=== PATIENT | male | born 1930 | race Caucasian/White ===

== ENCOUNTER 2017-04-08 10:12 | Outpatient (CLI) | payer MEDICARE, BC, OTHER ==
[~2017-04-08 10:12] MED LIST: Iopamidol 370 76% 100 ML VIAL ONE
[2017-04-08 11:42] LABS: Bilirubin Negative (Negative); Blood, Urine Negative (Negative); Glucose, Urine (Dipstick) Negative (Negative); Ketone, Urine Negative (Negative); Nitrite Negative (Negative); Protein, Urine (Dipstick) Negative (Neg-Trace); Urobilinogen 0.2 mg/dL (0.2-1.0)
[2017-04-08 11:47] LABS: Bacteria/HPF None Seen HPF (None Seen); Hyaline Casts/LPF 0-3 HYALINE CAST LPF (0-3 Hyaline); RBC/HPF None Seen HPF (0-3); Squamous Epithelial 0-3 HPF (0-3); WBC/HPF None Seen HPF (0-3)
[2017-04-08 11:58] LABS: ALT (SGPT) 15 U/L (8-55); AST (SGOT) 18 U/L (5-34); Alkaline Phosphatase 116 U/L (40-150); Anion Gap 10 mmol/L (10-20); BUN (Urea Nitrogen) 22 mg/dL (8.4-25.7); Bilirubin, Direct 0.2 mg/dL (0.1-0.3); Bilirubin, Total 0.7 mg/dL (0.2-1.2); Calc. Creatinine Clearance 0 mL/min (70-130); Calcium 9.6 mg/dL (7.8-10.44); Carbon Dioxide 28 mmol/L (23-31); Chloride 105 mmol/L (98-107); Estimated GFR-MDRD 55; Protein, Total 7.4 g/dL (5.8-8.1)
--- NOTE | 2017-04-08 16:13 | CT ---
CT ABDOMEN WITH AND WITHOUT IV CONTRAST CT PELVIC WITH AND WITHOUT IV CONTRAST 04/08/17 HISTORY: Prostate cancer. Patient underwent radiation therapy. History of kidney stones. COMPARISON: None available. FINDINGS: There is partial visualization of cardiac pacemaking leads. There is prominent calcification of judi l valve annulus and vascular calcifications seen in the abdominal aorta and iliac arteries. There is a small 6 mm pleural based pulmonary nodules seen at the lateral right lung base. No additional pulmo nary nodule is seen at either lung base. Degenerative changes are seen in the spine. There is left co nvexed scoliosis of the thoracolumbar spine. No lytic or sclerotic osseous lesions are seen. There are bilateral renal cysts with 2.1 cm cyst in the superior pole right kidney and exophytic 2 cm cyst lateral aspect mid portion left kidney. Subcentimeter too small to characterize hypodense lesio ns are also seen within the right kidney. No enhancing renal mass is visualized. No renal or ureteral calculus is seen. The urinary bladder is incompletely distended but otherwise normal in appearance. The liver, spleen, pancreas, and bilateral adrenal glands demonstrate a normal CT appearance. There is colonic diverticulosis. No lymphadenopathy, free fluid, or fluid collection is seen in the a bdomen or pelvis. IMPRESSION: 1. Pleural based pulmonary nodule right lower lobe measuring 6 mm. Followup evaluation in six mo nths is recommended. 2. Bilateral renal cysts with too small to characterize hypodense lesions in the right kidney. T here is no enhancing renal mass identified, and no renal or ureteral calculi are seen. 3. Mild cardiomegaly with minimal pericardial effusion. 4. Colonic diverticulosis. 5. Degenerative changes in the spine, but no lytic or sclerotic osseous lesions are seen to sugg est osseous metastatic disease. POS: [facility]
== END 2017-04-08 10:13 | disposition home or self-care (01) ==
LOC: CT 10:12
PROVIDERS: ATTEND Urology
DX: C61 Malignant neoplasm of prostate (principal); N28.1 Cyst of kidney, acquired; N32.0 Bladder-neck obstruction; N35.9 Urethral stricture, unspecified; I51.7 Cardiomegaly; I31.3 Pericardial effusion (noninflammatory); K57.30 Diverticulosis of large intestine without perforation or abscess without bleeding; M47.899 Other spondylosis, site unspecified; M89.9 Disorder of bone, unspecified; R91.1 Solitary pulmonary nodule; R39.198 Other difficulties with micturition; Z87.442 Personal history of urinary calculi
CPT/HCPCS: 36415; 74178; 80048; 80076; 81001; 84153; 87086

== ENCOUNTER 2017-04-22 06:49 | Outpatient (CLI) | payer MEDICARE, BC, OTHER ==
[2017-04-22] MEDS ORDERED: Iopamidol 370 76% 100 ML VIAL ONE (13:13)
--- NOTE | 2017-04-22 14:40 | CT ---
CT CHEST WITH CONTRAST: Technique: Multiple axial tomograms were obtained through the chest with IV enhancement. History: Lung nodule. Comparison: Abdomen and pelvic CT, 04-08-17. That exam described a small nodule in the peripheral rig ht lower lobe abutting the pleural surface. FINDINGS: On today's exam the small right lower lobe nodule peripherally is again seen. This measures approxima tely 7 mm in the coronal projection. It is located along the fissure. This does not abutt the pleural surface on today's exam. A tiny calcified nodule is seen in the superior segment of the right lower lobe right midlung field m easuring approximately 3 mm. No other pulmonary mass or nodule is seen. The mediastinum is unremarkable. No adenopathy. Atheroscle rotic changes in the thoracic aorta. Images through the upper abdomen appear unremarkable. IMPRESSION: 7 mm nodule peripheral right lower lobe in the right lung base along the fissure measuring 7 mm. Pedrito mmend noncontrast chest CT in 6-12 months to assess stability. POS: [facility]
== END 2017-04-22 06:50 | disposition home or self-care (01) ==
LOC: BICCT 06:49 → CT 06:50
PROVIDERS: ATTEND Internal Medicine Critical Care Medicine
DX: R91.1 Solitary pulmonary nodule (principal)
CPT/HCPCS: 71260

== ENCOUNTER 2017-04-24 11:06 | Outpatient (CLI) | payer MEDICARE, BC, OTHER ==
[2017-04-24 13:44] LABS: Hematocrit 38.1 % (42.0-52.0); Red Blood Cell (RBC) Count 4.07 mill/uL (4.70-6.10); White Blood Cell (WBC) Count 10.9 thou/uL (4.8-10.8)
[2017-04-24 13:48] LABS: PTT 31.7 SEC (22.9-36.1); Prothrombin Time 13.8 SEC (12.0-14.7)
[2017-04-24 14:00] LABS: Anion Gap 11 mmol/L (10-20); BUN (Urea Nitrogen) 26 mg/dL (8.4-25.7); Calc. Creatinine Clearance 0 mL/min (70-130); Calcium 9.4 mg/dL (7.8-10.44); Carbon Dioxide 25 mmol/L (23-31); Chloride 108 mmol/L (98-107); Estimated GFR-MDRD 51
[2017-04-24 14:21] LABS: Bacteria/HPF None Seen HPF (None Seen); Bilirubin Negative (Negative); Blood, Urine Large (Negative); Glucose, Urine (Dipstick) Negative (Negative); Hyaline Casts/LPF 0-3 HYALINE CAST LPF (0-3 Hyaline); Ketone, Urine Trace mg/dL (Negative); Nitrite Negative (Negative); Protein, Urine (Dipstick) 100 mg/dL (Neg-Trace); RBC/HPF GREATER THAN 50-TNTC HPF (0-3); Squamous Epithelial 0-3 HPF (0-3); Urobilinogen 0.2 mg/dL (0.2-1.0)
[2017-04-24 14:35] LABS: Renal Epithelial 0-3 HPF (0-3); Transitional Epithelial 0-3 HPF (0-3)
--- NOTE | 2017-05-10 13:27 | EKG ---
Test Reason : Blood Pressure : / mmHG Vent. Rate : 067 BPM Atrial Rate : 067 BPM P-R Int : 170 ms QRS Dur : 172 ms QT Int : 506 ms P-R-T Axes : 005 -80 072 degrees QTc Int : 534 ms AV sequential or dual chamber electronic pacemaker When compared with ECG of 29-JAN-2014 04:20, No significant change was found Confirmed by GISSELL WALLACE MD ([id number]) on 05/10/2017 1:26:41 PM Referred By: DELANO Confirmed By:GISSELL WALLACE MD
== END 2017-04-24 11:07 | disposition home or self-care (01) ==
LOC: LABBT 11:06
PROVIDERS: ATTEND Urology
DX: Z01.812 Encounter for preprocedural laboratory examination (principal); N32.0 Bladder-neck obstruction
CPT/HCPCS: 80048; 81001; 85027; 85610; 85730; 86850; 86900; 86901; 87086; 93005; 93010

== ENCOUNTER 2017-04-25 11:13 | Day surgery (SDC) | payer MEDICARE, BC, OTHER ==
[2017-04-24 11:31] VITALS: BMI 25.1
[2017-04-25] MEDS ORDERED: Levofloxacin 500 mg/D5W 100 ml Premix Bag ONE (13:53)
[2017-04-25] MEDS ORDERED: cefTRIAXone\\ROCEPHIN 1 GM, Syringe 0.4 ML in Sterile Water 9.6 ML SLOW IVP SCH (14:15)
[2017-04-25] MEDS ORDERED: Fentanyl 100 MCG/2 ML VIAL ONE (15:03)
[2017-04-25] MEDS ORDERED: Phenylephrine 10 MG/NS 250 ML 0 ML ONE (15:03)
[2017-04-25] MEDS ORDERED: Promethazine HCl 25 MG/ML VIAL ONE (15:03)
[2017-04-25] MEDS ORDERED: Iothalamate Meglumine 60% 50 ML VIAL FS ONE (15:10)
[2017-04-25] MEDS ORDERED: Phenylephrine 10 MG/NS 250 ML 250 ML ONE (15:21)
[2017-04-25] MEDS ORDERED: Ondansetron HCl/PF 4 MG/2 ML Vial ONE (15:36)
[2017-04-25] MEDS ORDERED: Lidocaine 1% PF 5 ML VIAL ONE (15:36)
[2017-04-25] MEDS ORDERED: Propofol 200 MG/20 ML VIAL ONE (15:36)
[2017-04-25] MEDS ORDERED: Phenazopyridine HCl 97.5 MG TABLET ONE (16:45)
[2017-04-25] MEDS ORDERED: Oxybutynin 5 MG TAB ONE (16:53)
--- NOTE | 2017-04-25 16:56 | OP ---
PRIMARY CARE PHYSICIAN: Tarun Fortune M.D. PREOPERATIVE DIAGNOSES: 1. An 87-year-old male with history of prostate cancer, status post external beam radiation therapy 2001. 2. History of benign prostatic hypertrophy status post transurethral resection of the prostate by Dr. Reed in 1979. 3. History of bladder neck contracture status post transurethral resection of the bladder neck contracture [place] [address] Reed. 4. History of impassable membranous urethral stricture, Dr. Sevilla treated on 2013 with dilation. POSTOPERATIVE DIAGNOSES: 1. An 87-year-old male with history of prostate cancer, status post external beam radiation therapy 2001. 2. History of benign prostatic hypertrophy status post transurethral resection of the prostate by Dr. Reed in 1979. 3. History of bladder neck contracture status post transurethral resection of the bladder neck contracture in [address] Reed. 4. History of impassable membranous urethral stricture, Dr. Sevilla treated on 2013 with dilation. PROCEDURES: Cystoscopy, transurethral resection of bladder neck contracture, 22 Malian 10 mL Councill-tip Jose catheter placement over guidewire. SURGEON: Niya Newman D.O. ANESTHESIA: LMA. COMPLICATIONS: None apparent. DISPOSITION: Recovery room in stable condition. INTRAOPERATIVE FINDINGS: 1. Diffuse urethral fibrosis. 2. Resolution of bulbar urethral stricture recently dilated at my office. 3. Tight bladder neck contracture with fibrosis. 4. Diffuse telangiectases of the bladder mucosa consistent with radiation cystitis changes. 5. No bladder lesion. 6. Bilateral clear efflux of urine. 7. Diffuse cellulae trabeculation consistent with chronic outlet obstruction 8. False passage at the level of the membranous urethra INDICATIONS FOR THE PROCEDURE AND HISTORY: Mr. Cardenas is a pleasant 87-year-old male with history of prostate cancer, BPH, bladder neck contracture, urethral stricture previously followed by Dr. Sevilla. He recently transitioned his care to me. He was previously followed by Dr. Reed and had undergone transurethral resection of prostate, subsequent transurethral resection of bladder neck contracture in 1996. He subsequently was diagnosed with [place] score 3+4 prostate cancer and underwent radiation therapy in 2001. He was then followed by the [facility], found to have very tight impassable membranous urethral stricture, which was treated in 2013. He presented to my office with no significant urinary retention, PVR 0, however, had significant irritative and obstructive urinary symptoms of decreased caliber urinary frequency, hesitancy. He underwent local cystoscopy, which demonstrated bulbar urethral stricture which I was able to pass proximally, he had a tight bladder neck contracture 12-14 Malian caliber, due to the significant fibrosis of the bladder neck, I was unable to pass a catheter over the guidewire, nor dilated his bladder neck. Given that there was an acute angle of the bladder neck, the only catheter I was able to pass was a coude catheter. Subsequently, the urine has been clear. He presents today for transurethral resection of bladder neck contracture as it is unable to be dilated. Risks and complications and indications for the procedure was reviewed with him in detail including, but not limited to, bleeding, pain, infection, injury to adjacent organs, urosepsis. Ureteral bladder injury discussed with patient in detail and he desired to proceed. DESCRIPTION OF THE PROCEDURE: After an informed consent is signed, the patient is taken to the operating room, placed in a dorsal lithotomy position with the genital area prepped and draped in the usual surgical sterile fashion. The previously placed urethral Jose catheter was removed and I was able to pass a 21-Malian cystoscope without any issues. There was evidence of a false passage at the bulbar membranous urethra junction; however, no evidence of stricture. The bladder neck again demonstrated caliber, approximately 14-16 Malian caliber as it was minimally dilated under local, again there is a tight angle of the bladder neck; however, I was able to negotiate the rigid cystoscope into the bladder. There were diffuse changes consistent with radiation cystitis, prominent vasculature with no active bleeding appreciated. Diffuse cellulae trabecular formation was noted consistent with chronic outlet obstruction. At this time, a 26-Malian resectoscope gyrus bipolar was placed, visual obturator was utilized to pass the scope under direct visualization. Transurethral resection of bladder neck contracture was performed in which I was able to pass the scope back and forth without any issues. A 0.35 Super Stiff wire was then placed at the level of the bladder and a 22 Malian Councill-tip was able to be passed without any resistance. Clear urine output was noted. Due to the very dense nature of his bladder neck contracture, and false passage at the bulbar membranous urethra, I will leave the indwelling Jose catheter for 2 weeks. He is advised to continue to hold his Pradaxa, as I do have concerns regarding his radiation cystitis, with recent instrumentation. It would be prudent to hold his anticoagulation until follow up when Jose catheter can be safely removed. He is discharged with [place] 5/325, #40 1-2 p.o. q.8 hours p.r.n., ciprofloxacin for 2 weeks, Myrbetriq 50 mg 1 p.o. daily #14, AZO p.r.n., Colace p.r.n. Appointment provided for 05/09/2017 at 8:15 a.m. for a voiding trial. [facility]
== END 2017-04-25 18:48 | disposition home or self-care (01) ==
LOC: SDC 11:13
PROVIDERS: ATTEND Urology
PROC: 0TTC8ZZ Resection of Bladder Neck, Via Natural or Artificial Opening Endoscopic (ICD-10-PCS; principal; 2017-04-25)
DX: N32.0 Bladder-neck obstruction (principal); N32.89 Other specified disorders of bladder; H91.93 Unspecified hearing loss, bilateral; E78.00 Pure hypercholesterolemia, unspecified; Z90.89 Acquired absence of other organs; Z90.79 Acquired absence of other genital organ(s); Z90.49 Acquired absence of other specified parts of digestive tract; Z95.0 Presence of cardiac pacemaker; Z98.890 Other specified postprocedural states; Z87.442 Personal history of urinary calculi; Z85.46 Personal history of malignant neoplasm of prostate
CPT/HCPCS: 52640; 88307; C1758; C1769; A4216; J0696; J1956; J2001; J2405; J2550; J2704; J3010; Q9961

== ENCOUNTER 2017-09-13 09:42 | Inpatient (IN) | payer MEDICARE, BC, OTHER ==
[2017-09-13 10:44] LABS: #Monocytes 1.4 thou/uL (0.11-0.59); #Neutrophils 14.9 thou/uL (1.40-6.50); %Eosinophils 0.1 % (0.0-10.0); %Lymphocytes 5.6 % (21.0-51.0); %Monocytes 7.9 % (0.0-10.0); %Neutrophils 86.4 % (42.0-75.0); Hemoglobin 13.5 g/dL (14.0-18.0); Mean Corpuscular HGB CONC 34.2 g/dL (32.0-36.0); Mean Corpuscular Hemoglobin 29.5 pg (27.0-31.0); Mean Corpuscular Volume 86.2 fl (80.0-94.0); Platelet Count 158 thou/uL (130-400); RBC Distribution Width 13.5 % (11.5-14.5); Red Blood Cell (RBC) Count 4.57 mill/uL (4.70-6.10); White Blood Cell (WBC) Count 17.2 thou/uL (4.8-10.8)
[2017-09-13 11:11] LABS: ALT (SGPT) 15 U/L (8-55); AST (SGOT) 20 U/L (5-34); Albumin 4.5 g/dL (3.4-4.8); Alkaline Phosphatase 130 U/L (40-150); Anion Gap 17 mmol/L (10-20); BUN (Urea Nitrogen) 28 mg/dL (8.4-25.7); Bilirubin, Total 1.2 mg/dL (0.2-1.2); CK (CPK) 90 U/L (30-200); Calc. Creatinine Clearance 0 mL/min (70-130); Calcium 9.7 mg/dL (7.8-10.44); Carbon Dioxide 23 mmol/L (23-31); Chloride 101 mmol/L (98-107); Estimated GFR-MDRD 40; Glucose 123 mg/dL (83-110); Lipase 14 U/L (8-78); Potassium 3.8 mmol/L (3.5-5.1); Protein, Total 7.5 g/dL (5.8-8.1); Sodium 137 mmol/L (136-145)
--- NOTE | 2017-09-13 11:16 | RAD ---
CHEST 1 VIEW: Date: 09/13/17 HISTORY: Fall. Weakness. COMPARISON: 03/02/08. FINDINGS: Cardiac silhouette is magnified and upper limits of normal. Shallow inspiration accentuates pulmonary markings. Mediastinum midline with aortic calcifications and a dual lead left subclavian cardiac cesar ctronic device. No lobar consolidation or evidence of pneumothorax. IMPRESSION: Chronic-type findings. No active cardiopulmonary abnormalities are demonstrated. POS: [facility]
[2017-09-13 11:17] LABS: CKMB 1.6 ng/mL (0-6.6); Troponin I 0.066 ng/mL (< 0.028)
--- NOTE | 2017-09-13 12:05 | PDOC.FPRHP ---
- History of Present Illness Chief Complaint: Weakness, Cough History of Present Illness: 87 y/o M with PMHx of HTN, HLD, CAD presents with cough and weakness. The patient reports an ongoing productive cough for 3 days. He denies any chest pain , SOB, fevers, chills. He denies any sick contacts. He acutely became weak the day before yesterday and has had three falls since then. Yesterday he fell twice and then today once. He has had no injuries, but just feels generally weak. He denies any focal weakness or symptoms. He has gotten a pneumonia shot before, but says it was a long time ago. He walks with a walker. He lives in an assisted living facility with his . ED Course: The patient was evaluated in the ED by Dr. Snider and Shantel Soria and was given Levaquin 750mg, NS @ 125, and a duoneb. - Allergies/Adverse Reactions Allergies Allergy/AdvReac Type Severity Reaction Status Date / Time No Known Allergies Allergy Verified 04/24/17 11:31 - Home Medications Medication Instructions Recorded Confirmed Type Dabigatran [Pradaxa] 1 cap PO BID 10/10/12 09/13/17 History Dexlansoprazole [Dexilant] 1 cap PO DAILY 10/10/12 09/13/17 History Dorzolamide HCl/Timolol Maleat 1 drop EA EYE BID 10/10/12 09/13/17 History [Cosopt Ophth Solution] Areds Eye Vitamin 2 cap PO DAILY 04/24/17 09/13/17 History Colestipol HCl 2 tab PO DAILY 04/24/17 09/13/17 History DULoxetine HCl 1 cap PO DAILY 04/24/17 09/13/17 History Donepezil HCl [Aricept] 1 tab PO HS 04/24/17 09/13/17 History Ergocalciferol (Vitamin D2) 1 tab PO DAILY 04/24/17 09/13/17 History [Vitamin D2] Latanoprost [Xalatan 0.005% Ophth 1 drop EA EYE QPM 04/24/17 09/13/17 History Soln] Metoprolol Succinate 1 tab PO HS 04/24/17 09/13/17 History Multivitamin [Multi-Vitamin Daily] 1 tab PO DAILY 04/24/17 09/13/17 History Potassium Chloride [K-Dur] 2 tab PO DAILY 04/24/17 09/13/17 History amLODIPine/Atorvastatin [Caduet] 1 tab PO DAILY 04/24/17 09/13/17 History Ciprofloxacin HCl [Cipro] 500 mg PO BID 04/25/17 04/25/17 History Fexofenadine HCl [Mckenzie Allergy] 180 mg PO DAILY 09/13/17 09/13/17 History Gabapentin [Neurontin] 300 mg PO HS 09/13/17 09/13/17 History - History PMHx: 1. Bradycardia s/p pacemaker 2. a-fib 3. CAD 4. HLD 5. HTN 6. Prostate cancer 7. Osteoarthritis PSHx: 1. TURP 2. Cholecystectomy 3. Pacemaker 4. Tonsillectomy FHx: Denies Social: Former cigar and cigarette smoker, but quit in the . Drinks a beer occasionally, denies drug use. Lives in an assisted living facility with his . PCP: Devika - Review of Systems General: reports: fatigue. denies: fever/chills Eyes: reports: eye pain ENT: reports: nasal congestion, rhinorrhea Respiratory: reports: cough. denies: shortness of breath Cardiovascular: denies: chest pain, edema Gastrointestinal: denies: nausea, vomiting, diarrhea, abdominal pain Genitourinary: denies: incontinence, dysuria Skin: denies: rashes, lesions Musculoskeletal: denies: pain, tenderness, stiffness Neurological: reports: weakness. denies: numbness, syncope, seizure Psychological: denies: anxiety, depression - Vital signs BP: 136/64 HR: 75 RR: 18 Tmax: 98.2 Pox: 94% on RA Wt: 90.72kg - Physical Exam Constitutional: NAD, awake, alert and oriented, well developed HEENT: normocephalic and atraumatic, EOMI, MMM, oropharynx clear Neck: supple, no LAD Heart: RRR, normal S1/S2 -Lungs: Tachypneic, no use of accessory muscles of respiration, Crackles in left lung base, diffuse rhonchi. Abdomen: soft, non-tender, bowel sounds present, no masses/distention Musculoskeletal: normal structure, normal tone, ROM grossly normal Neurological: no focal deficit, CN II-XII intact Skin: no rash/lesions, good turgor, capillary refill <2 seconds Psychiatric: normal mood and affect, good judgment and insight, intact recent and remote memory FMR H&P: Results - Labs Result Diagrams: 09/13/17 10:27 09/13/17 10:27 Lab results: WBC 17.2 thou/uL (4.8-10.8) H 09/13/17 10:27 Hgb 13.5 g/dL (14.0-18.0) L 09/13/17 10:27 Hct 39.4 % (42.0-52.0) L 09/13/17 10:27 MCV 86.2 fl (80.0-94.0) 09/13/17 10:27 Plt Count 158 thou/uL (130-400) 09/13/17 10:27 Neutrophils % 86.4 % (42.0-75.0) H 09/13/17 10:27 Sodium 137 mmol/L (136-145) 09/13/17 10:27 Potassium 3.8 mmol/L (3.5-5.1) 09/13/17 10:27 Chloride 101 mmol/L (98-107) 09/13/17 10:27 Carbon Dioxide 23 mmol/L (23-31) 09/13/17 10:27 BUN 28 mg/dL (8.4-25.7) H 09/13/17 10:27 Creatinine 1.64 mg/dL (0.6-1.3) H 09/13/17 10:27 Glucose 123 mg/dL (83-110) H 09/13/17 10:27 Lactic Acid 1.7 mmol/L (0.5-2.2) 09/13/17 10:27 Calcium 9.7 mg/dL (7.8-10.44) 09/13/17 10:27 Total Bilirubin 1.2 mg/dL (0.2-1.2) 09/13/17 10:27 AST 20 U/L (5-34) 09/13/17 10:27 ALT 15 U/L (8-55) 09/13/17 10:27 Alkaline Phosphatase 130 U/L (40-150) 09/13/17 10:27 Creatine Kinase 90 U/L (30-200) 09/13/17 10:27 CK-MB (CK-2) 1.6 ng/mL (0-6.6) 09/13/17 10:27 Serum Total Protein 7.5 g/dL (5.8-8.1) 09/13/17 10:27 Albumin 4.5 g/dL (3.4-4.8) 09/13/17 10:27 Lipase 14 U/L (8-78) 09/13/17 10:27 - Radiology Interpretation Chest x-ray Status: image reviewed by me, report reviewed by me Additional comment: No evidence of acute process FMR H&P: A/P - Problem List (1) Sepsis Current Visit: Yes Status: Acute Code(s): A41.9 - SEPSIS, UNSPECIFIED ORGANISM Qualifiers: Sepsis type: sepsis due to unspecified organism Qualified Code(s): A41.9 - Sepsis, unspecified organism (2) CAP (community acquired pneumonia) Current Visit: Yes Status: Acute Code(s): J18.9 - PNEUMONIA, UNSPECIFIED ORGANISM Qualifiers: Lung location: unspecified part of lung (3) CELESTINO (acute kidney injury) Current Visit: Yes Status: Acute Code(s): N17.9 - ACUTE KIDNEY FAILURE, UNSPECIFIED (4) Dehydration Current Visit: No Status: Acute Code(s): E86.0 - DEHYDRATION (5) Weakness generalized Current Visit: Yes Status: Acute Code(s): R53.1 - WEAKNESS (6) A-fib Current Visit: Yes Status: Acute Code(s): I48.91 - UNSPECIFIED ATRIAL FIBRILLATION Qualifiers: Atrial fibrillation type: unspecified Qualified Code(s): I48.91 - Unspecified atrial fibrillation (7) Adenocarcinoma of prostate Current Visit: No Status: Acute Code(s): C61 - MALIGNANT NEOPLASM OF PROSTATE (8) Coronary artery disease Current Visit: No Status: Acute Code(s): I25.10 - ATHSCL HEART DISEASE OF [place] CORONARY ARTERY W/O ANG PCTRS Qualifiers: Coronary Disease-Associated Artery/Lesion type: [place] artery [place] vs. transplanted heart: [place] heart Associated angina: angina presence unspecified Qualified Code(s): I25.10 - Atherosclerotic heart disease of [place] coronary artery without angina pectoris (9) Hyperlipidemia Current Visit: No Status: Acute Code(s): E78.5 - HYPERLIPIDEMIA, UNSPECIFIED Qualifiers: Hyperlipidemia type: unspecified Qualified Code(s): E78.5 - Hyperlipidemia , unspecified (10) Hypertension Current Visit: No Status: Acute Code(s): I10 - ESSENTIAL (PRIMARY) HYPERTENSION Qualifiers: Hypertension type: essential hypertension Qualified Code(s): I10 - Essential (primary) hypertension (11) Bradycardia Current Visit: Yes Status: Acute Code(s): R00.1 - BRADYCARDIA, UNSPECIFIED (12) Pacemaker Current Visit: Yes Status: Acute Code(s): Z95.0 - PRESENCE OF CARDIAC PACEMAKER - Plan Sepsis 2/2 Community Acquired Pneumonia Patient had tachypnea and leukocytosis. He had significant rhonchi on exam. There was no evidence of infiltrate on the CXR, but will repeat in the AM after adequate hydration as the patient appears clinically to have PNA. He was given a dose of levaquin in the ED. CRP elevated to 19.62 -Rocephin day 1 -Azithromycin will start on 5/6 -Prednisone as the patient had elevated CRP -Repeat CXR after adequate hydration -Bolus with NS followed by NS @ 130 -Procalcitonin -Urine strep pneumo and legionella CELESTINO on CKD 2 Patient has elevated Cr from baseline. Likely prerenal -Will give NS -Monitor Generalized Weakness This could be 2/2 CAP as patient is elderly. -Will treat infection and monitor -PT/OT -CM consult for potential placement Prostate Adenocarcinoma s/p TURP -Continue home meds CAD Troponin was initially indeterminate, but downtrended -Continue pradaxa HTN -Continue metoprolol and amlodipine a-fib -Continue metoprolol VTE ppx: continue home Pradaxa Code Status: DNR/DNI Disposition/LOS: Admit to medical, length of stay likely greater than 2 days FMR H&P: [place] - Pertinent history 87 year old white male who presented to the ED complaining of generalized weakness and 3 falls over the last 2 days. He also reports cough and nausea for 3-4 days. He denies fever, chills, headache, sore throat, chest pain, dyspnea, orthopnea, PND, peripheral edema, unilateral weakness, and slurred speech. Falls were not associated with head injury and he denies musculoskeletal pain and loss of consciousness. 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 Denies tobacco, drug, and alcohol use. ED Seen by BRYOLOGIST Yang. Given Levaquin, Duoneb, and IV fluids - Pertinent findings Vital Signs Tmax 98.2 RR 36 HR 67 BP 128/71 O2 sat: 97% on room air Weight 90.7 kg EKG: Paced ventricular rhythm CXR: No acute abnormalities on 1 view portable chest x-ray Physical Exam: General: Awake, alert, oriented x4. NAD. Nontoxic appearing Eyes: EOMI, PERRL, nonicteric ENT: MMM, oropharynx clear CV: RRR. No murmurs, rubs, or gallops auscultated. Pulses full and equal in all 4 extremities Respiratory: Tachypneic at time of my exam. Has bibasilar rales and diffuse rhonchi Abdomen: Nontender, nondistended, no guarding or rebound Extremities: No edema. Equal movements bilaterally Neuro: CN II-XII intact. No focal deficits Psych: Mood and affect appropriate. Judgment and insight intact. - Plan Date/Time: 09/13/17 1205 ITereso DO, have evaluated this patient and agree with findings/plan as outlined by corporate strategy intern resident. Pertinent changes/additions are listed here. 87 year old white male presents with: 1) Sepsis 2/2 community acquired pneumonia Admit to inpatient. Septic on basis of leukocytosis and tachypnea at the time of my exam. Will treat with iv antibiotics and fluids. Lactate only 1.7. Check CRP, urine antigens for Streptococcus and Legionella. Blood cultures pending. Will get UA and urine culture. Consider daily steroids. BNP indeterminate and no symptoms of CHF so do not suspect that as the cause at this time. 2) Indeterminate troponin Patient has known history of CAD. No ischemic changes and CK-MB normal. Trend cardiac enzymes and EKG. Likely 2/2 #1 3) CELESTINO ok CKD stage 2 - Urine studies. Gentle iv fluids 4) HTN - Home meds 5) HLD - Home meds 6) CAD - Home meds 7) History of atrial fibrillation - Rate controlled. Home meds. Continue Pradaxa 8) BPH - Home meds 9) Code status - DNR/DNI
[2017-09-13 13:45] LABS: CKMB 1.7 ng/mL (0-6.6)
[2017-09-13] MEDS ORDERED: Sodium Chloride 0.9% 1,000 ML IV SCH (14:30)
[2017-09-13] MEDS ORDERED: Ondansetron HCl/PF 4 MG/2 ML Vial IVP PRN (14:31)
[2017-09-13] MEDS ORDERED: Ondansetron ODT 4 MG TAB PO PRN (14:31)
[2017-09-13] MEDS ORDERED: cefTRIAXone\\ROCEPHIN 1 GM in Sodium Chloride 0.9% 100 ML IVPB SCH (14:31)
[2017-09-13 15:09] VITALS: BMI 26.0
--- NOTE | 2017-09-13 15:20 | RAD ---
2 VIEW CHEST: Date: 09/13/17 HISTORY: Pneumonia. COMPARISON: Portable film earlier this morning. FINDINGS: The current exam is poorly positioned with rotation to the frontal projection. The lungs appear well aerated and clear with no evidence of infiltrate identified. Heart is mildly enlarged with prominent aortic calcification. No evidence of vascular congestion or edema. No effusion. Pacemaker leads are n oted. IMPRESSION: No evidence of infiltrate. POS: [facility]
[2017-09-13] MEDS ORDERED: Sodium Chloride 0.9% 500 ML IV SCH (16:00)
[2017-09-13] MEDS: Sodium Chloride 0.9% 1,000 ML IV SCH ×3 (16:12→22:51)
[2017-09-13] MEDS: predniSONE 50 MG TAB PO SCH (16:13)
[2017-09-13] MEDS: cefTRIAXone\\ROCEPHIN 1 GM, Syringe 0.4 ML in Sterile Water 9.6 ML SLOW IVP SCH (17:00)
[2017-09-13 17:33] LABS: Bilirubin Negative (Negative); Blood, Urine Negative (Negative); Clarity CLOUDY (Clear); Glucose, Urine (Dipstick) Negative (Negative); Leukocyte Small (Negative); Nitrite Negative (Negative); Protein, Urine (Dipstick) 30 mg/dL (Neg-Trace); Specific Gravity, Urine 1.026 (1.002-1.036); Urobilinogen 0.2 mg/dL (0.2-1.0)
[2017-09-13 17:35] LABS: Bacteria/HPF None Seen HPF (None Seen); RBC/HPF 0-3 HPF (0-3); Squamous Epithelial 0-3 HPF (0-3); WBC/HPF 21-50 HPF (0-3)
[2017-09-13 17:36] LABS: Yeast-AUWi Flag 53.9 (0-25.0)
[2017-09-13 17:37] LABS: Pathc Cast-AUWi Flag 2.61 (0-2.49)
[2017-09-13 17:47] LABS: Hyaline Casts/LPF 4-6 HYALINE CAST LPF (0-3 Hyaline); Other Casts/LPF None Seen LPF (0-3 Hyaline)
[2017-09-13 17:48] LABS: Legionella Urinary Ag Negative (Negative); Renal Epithelial None Seen HPF (0-3); Strep pneumo Urine Ag NEGATIVE (NEGATIVE); Transitional Epithelial NONE SEEN HPF (0-3); Yeast-All Forms None Seen HPF (None Seen)
[2017-09-13 17:51] LABS: CKMB 2.6 ng/mL (0-6.6); Troponin I 0.046 ng/mL (< 0.028)
[2017-09-13 17:58] LABS: Sodium, Urine Less than 20 mmol/L (Not Available)
[2017-09-13 18:23] LABS: Urea Nitrogen, Random Urine Greater than 1200 mg/dl
[2017-09-13] MEDS: Gabapentin 300 MG CAP PO SCH (20:40)
[2017-09-13] MEDS: Atorvastatin Calcium 10 MG TAB PO SCH (20:40)
[2017-09-13] MEDS: Dabigatran 150 mg Capsule PO SCH (20:41)
[2017-09-13] MEDS: Donepezil HCl 10 MG TAB PO SCH (20:41)
[2017-09-13] MEDS ORDERED: Melatonin 3 MG TAB PO PRN (22:35)
[2017-09-13] MEDS ORDERED: Acetaminophen 325 MG TAB PO PRN (22:35)
[2017-09-14 05:09] LABS: #Lymphocytes 0.7 thou/uL (1.20-3.40); #Monocytes 0.7 thou/uL (0.11-0.59); #Neutrophils 8.7 thou/uL (1.40-6.50); %Basophils 0.1 % (0.0-1.0); %Eosinophils 0.1 % (0.0-10.0); %Lymphocytes 7.3 % (21.0-51.0); %Monocytes 6.4 % (0.0-10.0); %Neutrophils 86.1 % (42.0-75.0); Hemoglobin 11.7 g/dL (14.0-18.0); Mean Corpuscular HGB CONC 35.3 g/dL (32.0-36.0); Mean Corpuscular Hemoglobin 30.7 pg (27.0-31.0); Mean Corpuscular Volume 87.1 fl (80.0-94.0); Mean Platelet Volume 8.3 fL (7.4-10.4); Platelet Count 141 thou/uL (130-400); RBC Distribution Width 13.2 % (11.5-14.5); Red Blood Cell (RBC) Count 3.82 mill/uL (4.70-6.10); White Blood Cell (WBC) Count 10.1 thou/uL (4.8-10.8)
[2017-09-14 05:21] LABS: Anion Gap 10 mmol/L (10-20); BUN (Urea Nitrogen) 27 mg/dL (8.4-25.7); Calc. Creatinine Clearance 48 mL/min (70-130); Calcium 8.4 mg/dL (7.8-10.44); Carbon Dioxide 20 mmol/L (23-31); Chloride 110 mmol/L (98-107); Estimated GFR-MDRD 58; Glucose 134 mg/dL (83-110); Potassium 3.7 mmol/L (3.5-5.1); Sodium 136 mmol/L (136-145)
--- NOTE | 2017-09-14 06:32 | PDOC.FM ---
- Subjective Subjective: Axel Cardenas seen at bedside this morning. He is doing well. He states that he is feeling better this morning, feeling much stronger. He says he has more of an appetite. Says that he is coughing less as well. No questions or concerns. Denies fever, chills, chest pain, dyspnea, n/v. - Objective MAR Reviewed: Yes Vital Signs & Weight: Vital Signs (12 hours) Temp Pulse Resp BP Pulse Ox 09/14/17 03:41 97.4 F L 78 18 142/72 H 94 L 09/14/17 00:25 98.1 F 78 22 H 131/72 95 09/13/17 20:17 98.1 F 80 18 94 L 09/13/17 20:00 98.1 F 80 18 139/64 94 L Weight Weight 80.031 kg I&O: 09/12/17 09/13/17 09/14/17 06:59 06:59 06:59 Intake Total 2160 Output Total 650 Balance 1510 Result Diagrams: 09/14/17 04:26 09/14/17 04:26 <Young Cox - Last Filed: 09/14/17 07:30> - Objective Vital Signs & Weight: Vital Signs (12 hours) Temp Pulse Resp BP BP Pulse Ox 09/14/17 08:17 97.7 F 67 20 145/68 H 97 09/14/17 07:50 67 138/80 09/14/17 03:41 97.4 F L 78 18 142/72 H 94 L 09/14/17 00:25 98.1 F 78 22 H 131/72 95 Weight Weight 176 lb 7 oz I&O: 09/13/17 09/14/17 09/15/17 06:59 06:59 06:59 Intake Total 2160 Output Total 650 Balance 1510 Result Diagrams: 09/14/17 04:26 09/14/17 04:26 <Camacho Chairez - Last Filed: 09/14/17 10:03> Phys Exam - Physical Examination Constitutional: NAD HEENT: moist MMs, sclera anicteric Neck: no JVD, supple, full ROM slight b/l rhonchi and minimal wheezes present Cardiovascular: RRR, no significant murmur Gastrointestinal: soft, non-tender, no distention Musculoskeletal: no edema, pulses present Neurological: non-focal, normal sensation, moves all 4 limbs Psychiatric: normal affect, A&O x 3 Skin: no rash, normal turgor <KennyMinYoung - Last Filed: 09/14/17 07:30> Dx/Plan (1) A-fib Code(s): I48.91 - UNSPECIFIED ATRIAL FIBRILLATION Status: Acute QualifierTitle: Atrial fibrillation type: unspecified Qualified Code(s): I48.91 - Unspecified atrial fibrillation (2) CELESTINO (acute kidney injury) Code(s): N17.9 - ACUTE KIDNEY FAILURE, UNSPECIFIED Status: Acute (3) CAP (community acquired pneumonia) Code(s): J18.9 - PNEUMONIA, UNSPECIFIED ORGANISM Status: Acute QualifierTitle: Lung location: unspecified part of lung (4) Sepsis Code(s): A41.9 - SEPSIS, UNSPECIFIED ORGANISM Status: Acute QualifierTitle: Sepsis type: sepsis due to unspecified organism Qualified Code(s): A41.9 - Sepsis, unspecified organism (5) Weakness generalized Code(s): R53.1 - WEAKNESS Status: Acute (6) Benign prostate hyperplasia Code(s): N40.0 - BENIGN PROSTATIC HYPERPLASIA WITHOUT LOWER URINRY TRACT SYMP Status: Acute (7) Bladder spasm Status: Acute (8) Coronary artery disease Code(s): I25.10 - ATHSCL HEART DISEASE OF [place] CORONARY ARTERY W/O ANG PCTRS Status: Acute QualifierTitle: Coronary Disease-Associated Artery/Lesion type: [place] artery [place] vs. transplanted heart: [place] heart Associated angina: angina presence unspecified Qualified Code(s): I25.10 - Atherosclerotic heart disease of [place] coronary artery without angina pectoris - Plan Plan: Sepsis 2/2 Community Acquired Pneumonia Patient had tachypnea and leukocytosis. He had significant rhonchi on exam. There was no evidence of infiltrate on the CXR, but will repeat in the AM after adequate hydration as the patient appears clinically to have PNA. He was given a dose of levaquin in the ED. 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 Likely prerenal -Will give NS -recheck this morning Generalized Weakness This could be 2/2 CAP as patient is elderly. -Will treat infection and monitor -PT/OT -CM consult for potential placement Prostate Adenocarcinoma s/p TURP -Continue home meds CAD cardiac enzymes indeterminant and downtrended X3 -Continue pradaxa HTN -Continue metoprolol and amlodipine a-fib -Continue metoprolol <Young Cox - Last Filed: 09/14/17 07:30> Attending Addendum - Attending Addendum Date/Time: 09/14/17 1002 I personally evaluated the patient and discussed the management with Dr. Cox I agree with the History, Examination, Assessment and Plan documented above with any addition or exceptions noted below. Axel Cardenas is an 87 year old male who was admitted for sepsis 2/2 CAP. He is being treated with IV Rocephin. Respiratory status is improving , he is requiring 1L of supplemental O2 this morning. Feeling much better. WBC is downtrending. Will continue to monitor today and overnight and reevaluate in the morning. <Camacho Chairez - Last Filed: 09/14/17 10:03>
[2017-09-14] MEDS: Amlodipine 5 MG TAB PO SCH (07:50)
[2017-09-14] MEDS: DULoxetine 60 MG CAP PO SCH (07:50)
[2017-09-14] MEDS: predniSONE 50 MG TAB PO SCH (07:54)
[2017-09-14] MEDS: Dabigatran 150 mg Capsule PO SCH ×2 (07:54→20:48)
[2017-09-14] MEDS: Sodium Chloride 0.9% 1,000 ML IV SCH ×2 (07:55→20:59)
[2017-09-14] MEDS ORDERED: Prevnar 13-Val Conj/PF 0.5 ML SYRINGE IM ONE (09:00)
--- NOTE | 2017-09-14 12:09 | RAD ---
2 VIEW CHEST: Date: 09/14/17 An AP frontal and lateral view of chest obtained. HISTORY: Cough and elevated white count. Assess for pneumonia. COMPARISON: 09/13/17. FINDINGS: Mild atelectatic change in the left lung base. Some streaky atelectasis or subtle infiltrate seen pos teriorly on the lateral projection. No confluent consolidation. No evidence of vascular congestion or edema. Heart size upper normal with pacemaker leads again noted. IMPRESSION: No focal consolidation or confluent infiltrate. POS: [facility]
[2017-09-14] MEDS: Azithromycin 500 MG in Sodium Chloride 0.9% 250 ML 250 ML IVPB SCH (14:52)
[2017-09-14] MEDS: cefTRIAXone\\ROCEPHIN 1 GM, Syringe 0.4 ML in Sterile Water 9.6 ML SLOW IVP SCH (16:34)
[2017-09-14] MEDS: Donepezil HCl 10 MG TAB PO SCH (20:48)
[2017-09-14] MEDS: Atorvastatin Calcium 10 MG TAB PO SCH (20:48)
[2017-09-14] MEDS: Gabapentin 300 MG CAP PO SCH (20:48)
[2017-09-15] MEDS: Sodium Chloride 0.9% 1,000 ML IV SCH (05:19)
[2017-09-15 05:32] LABS: #Lymphocytes 1.9 thou/uL (1.20-3.40); #Monocytes 1.1 thou/uL (0.11-0.59); #Neutrophils 9.3 thou/uL (1.40-6.50); %Basophils 0.3 % (0.0-1.0); %Eosinophils 0.1 % (0.0-10.0); %Lymphocytes 15.2 % (21.0-51.0); %Monocytes 8.7 % (0.0-10.0); %Neutrophils 75.7 % (42.0-75.0); Hemoglobin 11.9 g/dL (14.0-18.0); Mean Corpuscular HGB CONC 33.1 g/dL (32.0-36.0); Mean Corpuscular Hemoglobin 28.7 pg (27.0-31.0); Mean Corpuscular Volume 86.6 fl (80.0-94.0); Mean Platelet Volume 7.9 fL (7.4-10.4); Platelet Count 183 thou/uL (130-400); RBC Distribution Width 13.4 % (11.5-14.5); Red Blood Cell (RBC) Count 4.14 mill/uL (4.70-6.10); White Blood Cell (WBC) Count 12.3 thou/uL (4.8-10.8)
[2017-09-15 05:42] LABS: Anion Gap 12 mmol/L (10-20); BUN (Urea Nitrogen) 27 mg/dL (8.4-25.7); Calc. Creatinine Clearance 52 mL/min (70-130); Carbon Dioxide 22 mmol/L (23-31); Chloride 111 mmol/L (98-107); Estimated GFR-MDRD 64; Glucose 109 mg/dL (83-110); Potassium 3.6 mmol/L (3.5-5.1); Sodium 141 mmol/L (136-145)
--- NOTE | 2017-09-15 06:39 | PDOC.FM ---
- Subjective Subjective: Axel Cardenas is seen at bedside this morning. He is doing well this morning. There were no acute events overnight. He states that he thinks he is ready to go home today. He denies any fever, chills, night sweats, chest pain, dyspnea, n/v. States that his cough has continued to improve. - Objective MAR Reviewed: Yes Vital Signs & Weight: Vital Signs (12 hours) Temp Pulse Resp BP Pulse Ox 09/14/17 20:00 97.3 F L 62 18 164/75 H 99 09/14/17 19:43 97.3 F L 62 18 99 Weight Weight 80.031 kg I&O: 09/13/17 09/14/17 09/15/17 06:59 06:59 06:59 Intake Total 2160 3230 Output Total 650 850 Balance 1510 2380 Result Diagrams: 09/15/17 05:09 09/15/17 05:09 <Young Cox - Last Filed: 09/15/17 08:32> - Objective Vital Signs & Weight: Vital Signs (12 hours) Temp Pulse Resp BP BP Pulse Ox 09/15/17 08:17 97.7 F 70 20 165/85 H 94 L 09/15/17 08:00 97.7 F 70 20 94 L 09/15/17 07:39 68 164/87 H Weight Weight 80.031 kg I&O: 09/14/17 09/15/17 09/16/17 06:59 06:59 06:59 Intake Total 2160 3230 Output Total 650 850 Balance 1510 2380 Result Diagrams: 09/15/17 05:09 09/15/17 05:09 <Angelito Felix - Last Filed: 09/15/17 11:44> Phys Exam - Physical Examination Constitutional: NAD HEENT: moist MMs, sclera anicteric Neck: no JVD, supple, full ROM Respiratory: no rales, no rhonchi, wheezing present, clear to auscultation bilateral mild b/l wheezes present Cardiovascular: RRR, no significant murmur Gastrointestinal: soft, non-tender, no distention Musculoskeletal: no edema, pulses present Neurological: non-focal, normal sensation, moves all 4 limbs Psychiatric: normal affect, A&O x 3 Skin: no rash, normal turgor <Young Cox Filed: 09/15/17 08:32> Dx/Plan (1) A-fib Code(s): I48.91 - UNSPECIFIED ATRIAL FIBRILLATION Status: Acute QualifierTitle: Atrial fibrillation type: unspecified Qualified Code(s): I48.91 - Unspecified atrial fibrillation (2) CELESTINO (acute kidney injury) Code(s): N17.9 - ACUTE KIDNEY FAILURE, UNSPECIFIED Status: Acute (3) CAP (community acquired pneumonia) Code(s): J18.9 - PNEUMONIA, UNSPECIFIED ORGANISM Status: Acute QualifierTitle: Lung location: unspecified part of lung (4) Sepsis Code(s): A41.9 - SEPSIS, UNSPECIFIED ORGANISM Status: Acute QualifierTitle: Sepsis type: sepsis due to unspecified organism Qualified Code(s): A41.9 - Sepsis, unspecified organism (5) Weakness generalized Code(s): R53.1 - WEAKNESS Status: Acute (6) Benign prostate hyperplasia Code(s): N40.0 - BENIGN PROSTATIC HYPERPLASIA WITHOUT LOWER URINRY TRACT SYMP Status: Acute (7) Bladder spasm Status: Acute (8) Coronary artery disease Code(s): I25.10 - ATHSCL HEART DISEASE OF [place] CORONARY ARTERY W/O ANG PCTRS Status: Acute QualifierTitle: Coronary Disease-Associated Artery/Lesion type: [place] artery [place] vs. transplanted heart: [place] heart Associated angina: angina presence unspecified Qualified Code(s): I25.10 - Atherosclerotic heart disease of [place] coronary artery without angina pectoris - Plan Plan: Sepsis 2/2 Community Acquired Pneumonia Patient had tachypnea and leukocytosis. He had significant rhonchi on exam. There was no evidence of infiltrate on the CXR, but will repeat in the AM after adequate hydration as the patient appears clinically to have PNA. He was given a dose of levaquin in the ED. CRP elevated to 19.62 -continue Rocephin, day 3 -Azithromycin, day 2 -continue prednisone -duonebs prn -Bolus with NS followed by NS @ 130 -Procalcitonin was negative -Urine strep pneumo and legionella negative -repeat CXR was negative CELESTINO on CKD 2: resolved Patient has elevated Cr from baseline. Likely prerenal -Will give NS -now back to baseline Generalized Weakness-resolved This could be 2/2 CAP as patient is elderly. -Will treat infection and monitor -PT/OT -CM consult for potential placement Prostate Adenocarcinoma s/p TURP -Continue home meds CAD cardiac enzymes indeterminant and downtrended X3 -Continue pradaxa HTN -Continue metoprolol and amlodipine a-fib -Continue metoprolol <Young Cox - Last Filed: 09/15/17 08:32> Attending Addendum - Attending Addendum Date/Time: 09/15/17 1142 I personally evaluated the patient and discussed the management with Dr. Cox. I agree with the History, Examination, Assessment and Plan documented above with any addition or exceptions noted below. Patient doing well this morning. Reports a desire to go home today. He is not hypoxic on room air, and is clearing secretions well. Is able to ambulate without difficulty or shortness of breath. Will discharge back to his AL facility today. <Angelito Felix - Last Filed: 09/15/17 11:44>
[2017-09-15] MEDS: Dabigatran 150 mg Capsule PO SCH (07:39)
[2017-09-15] MEDS: Amlodipine 5 MG TAB PO SCH (07:39)
[2017-09-15] MEDS: DULoxetine 60 MG CAP PO SCH (07:39)
[2017-09-15] MEDS: predniSONE 50 MG TAB PO SCH (07:39)
--- NOTE | 2017-09-15 12:42 | DIS-2 ---
DATE OF ADMISSION: 09/13/2017 DATE OF DISCHARGE: 09/15/2017 RESIDENT: Young Cox M.D. ADMITTING ATTENDING: Camacho Chairez M.D. DISCHARGE ATTENDING: Angelito Felix M.D. CONSULTATIONS: None. PROCEDURES: 1. Chest x-ray on 09/13/2017 read as chronic type findings, no active cardiopulmonary abnormalities demonstrated. 2. Chest x-ray on 09/13/2017 read as no evidence of infiltrate. 3. X-ray on 09/14/2017. Impression: No focal consolidation or confluent infiltrate. 4. Blood culture, no growth to date. 5. Urine culture, no growth to date. ADMISSION DIAGNOSIS: Sepsis secondary to community-acquired pneumonia. DISCHARGE DIAGNOSES: 1. Sepsis secondary to community-acquired pneumonia. 2. Acute kidney injury. 3. Atrial fibrillation. 4. Coronary artery disease. 5. Hypertension. DISCHARGE MEDICATIONS: Resume all home medications. 1. Pradaxa 1 cap p.o. b.i.d. 2. Cosopt ophthalmic solution 1 drop each eye b.i.d. 3. Dexilant 1 cap p.o. daily. 4. Multivitamin 1 tab p.o. daily. 5. AREDS eye vitamin 2 cap p.o. daily. 6. Potassium chloride 20 mEq 2 tabs p.o. daily. 7. Duloxetine 60 mg 1 cap p.o. daily. 8. Colestipol HCL 1 gram 2 tabs p.o. daily. 9. Aricept 10 mg 1 tab p.o. at bedtime. 10. Metoprolol succinate 25 mg 1 tab p.o. at bedtime. 11. Latanoprost 2.5 mL bottle 1 drop each eye q.p.m. 12. Amlodipine/atorvastatin 5 mg/10 mg tablet 1 tab p.o. daily. 13. Vitamin D2 2000 unit tablet 1 tab p.o. daily. 14. Gabapentin 300 mg p.o. at bedtime. 15. Fexofenadine 180 mg p.o. daily. Her new home medications, 1. Tylenol 650 mg p.o. q.6 h. p.r.n. 2. Azithromycin 25 mg p.o. daily for 4 days. 3. Mucinex 600 mg p.o. q.12 hour. 4. Melatonin 3 mg p.o. at bedtime p.r.n. HISTORY OF PRESENT ILLNESS AND HOSPITAL COURSE: Axel Quintanilla is an 87-year-old male with past medica l history of hypertension, hyperlipidemia, coronary artery disease who presented to the ED on with cough and weakness. Patient reported ongoing productive cough for 3 days. Denied any chest pain, shortness of breath, fevers or chills. Denies any sick contacts. He acutely became weak the day before yesterday and had 3 falls since the day before admission and had 3 falls since then. He h ad no injuries, but he just generally feels weak. He denies any focal weakness or symptoms, states t hat he has had the pneumonia vaccine before, but says it was a long time ago. He normally ambulates with a walker. He lives in an assisted living facility with his . In the ED, he was given Levaq uin 750 mg, normal saline at 125 mL an hour and a DuoNeb. He is a former cigar and cigarette smoker, but quit in the 1960s. Vital signs on admission were blood pressure 136/64, heart rate 75, respirat ory rate 18, temperature 98.2, and pulse ox 94% on room air. White blood cell count was 17.2 and 86% neutrophils. Creatinine was 1.64, BUN 28. Chest x-rays throughout admission showed no evidence of acute process and no infiltrate. Patient was admitted for sepsis secondary to community-acquired pne [facility], although chest x-ray was negative. He had tachypnea, leukocytosis and significant rhonchi on exam. CRP was elevated. The patient was started on Rocephin, azithromycin and prednisone was also started. Urine strep pneumo and legionella were negative. Procalcitonin was negative. The patient had acute kidney injury on CKD stage 2. IV fluids were started. Acute kidney injury resolved during the admission. Within about 24 hours of being admitted, the patient's symptoms resolved and his wea kness resolved and he regained his strength. He continued to have a mild cough throughout his admiss ion, which was explained to him to be expected for potentially the next few weeks. Mucinex was provi ded for the patient. The patient was ready for discharge on 09/15/2017. He was successfully weaned off oxygen and back to his baseline respiratory status. The patient was cleared for discharge and wa s advised to complete a course of azithromycin and continue Mucinex for congestion. The patient was in agreement with the plan and had no further questions. The patient was discharged on 09/15/2017. DISPOSITION: The patient will be discharged to [facility] where he lives with his . He should have a full recovery if he continues taking his antibiotic and Mucinex and follows u p with his primary care provider within 1-2 weeks for routine hospital admission followup. DISCHARGE INSTRUCTIONS: 1. Location: [facility]. 2. Diet: Heart healthy. 3. Activity: As tolerated. Follow up with primary care provider within 1-2 weeks.
[2017-09-15] MEDS: Azithromycin 500 MG in Sodium Chloride 0.9% 250 ML 250 ML IVPB SCH (15:38)
[2017-09-15] MEDS: cefTRIAXone\\ROCEPHIN 1 GM, Syringe 0.4 ML in Sterile Water 9.6 ML SLOW IVP SCH (15:38)
[2017-09-15 17:36] VITALS: BP 154/76; TEMP 98.6
[2017-09-15] MEDS ORDERED: guaiFENesin ER 600 MG TAB PO SCH (21:00)
== END 2017-09-15 17:36 | disposition home or self-care (01) | DRG 871 ==
LOC: ERS 09:42 → T4-B 11:42
PROVIDERS: ADMIT Family Medicine; ATTEND Family Medicine
DX: A41.9 Sepsis, unspecified organism (principal); J18.9 Pneumonia, unspecified organism; N17.9 Acute kidney failure, unspecified; I48.91 Unspecified atrial fibrillation; I25.10 Atherosclerotic heart disease of native coronary artery without angina pectoris; I12.9 Hypertensive chronic kidney disease with stage 1 through stage 4 chronic kidney disease, or unspecified chronic kidney disease; N18.2 Chronic kidney disease, stage 2 (mild); N40.0 Benign prostatic hyperplasia without lower urinary tract symptoms; E86.0 Dehydration; R00.1 Bradycardia, unspecified; C61 Malignant neoplasm of prostate; Z95.0 Presence of cardiac pacemaker; Z66 Do not resuscitate
CPT/HCPCS: 36415; 71045; 71046; 80048; 80053; 81003; 81015; 82553; 82570; 83605; 83690; 83880; 84145; 84300; 84484; 84540; 85025; 86140; 87040; 87086; 87899; 93005; 94640; 96365; A4216; G8978-GP-CJ; G8979-GP-CJ; G8980-GP-CJ; J0456; J0696; J1956; J7050; J7620

== ENCOUNTER 2017-10-22 12:12 | Outpatient (CLI) | payer MEDICARE, BC, OTHER ==
--- NOTE | 2017-10-22 13:55 | CT ---
CT OF CHEST PERFORMED WITH INTRAVNEOUS CONTRAST ENHANCEMENT: HISTORY: Followup of thyroid nodule. COMPARISON: 04/22/17 exam. FINDINGS: The lungs are clear of any infiltrative process. The pleural-based nodule seen along the lateral-mos t aspect of the major fissure has increased slightly in size. The measurements are approximately 7 m m on the prior exam and 8-9 mm on the current study. This could represent a slight interval increase in size, although it could be related to slice positioning. No new nodules are identified. No significant mediastinal or hilar adenopathy. Fairly extensive coronary artery calcifications are seen. The visualized liver parenchyma shows no focal finding. Right and left adrenal glands are normal. H ypodensity involving the right kidney is most likely a cyst. IMPRESSION: Questionable minimal increase in size of the right lower lobe pulmonary nodule which is based along t he fissure. It could represent a pleural-based node. It measures 8-9 mm as compared to 7 mm on the prior exam. POS: [facility]
== END 2017-10-22 12:13 | disposition home or self-care (01) ==
LOC: CT 12:12
PROVIDERS: ATTEND Internal Medicine Critical Care Medicine
DX: R91.1 Solitary pulmonary nodule (principal)
CPT/HCPCS: 71260; 82565